=== PATIENT | female | born 1950 | race Caucasian/White ===

== ENCOUNTER → 2016-10-14 | Outpatient (CLI) | payer MEDICARE, OTHER ==
[~2016-10-14] VITALS: Ht 157.5 cm; Wt 89.4 kg
[~2016-10-14] MED LIST: ADIPEX-P37.5 MG PO; ASPIRIN E.C. 8181 MG PO; ATACAND32 MG PO; BELVIQ PO; BETAPACE 80MG80 MG PO; BIOTIN1 MG PO; BYSTOLIC5 MG PO; CALCIUM 600600 M2 PO; CATAPRES 0.1MG0.1 MG PO; CELEBREX 1100 MG/CAP PO; CLARITIN 1010 MG/TAB PO; CLEOCIN HCL300 MG PO; CPAP; CRESTOR20 MG PO; CYMBALTA 60MG60 MG PO; ELIDEL1% TP; ELITE MAGNESIUM1 TAB PO; FASTIN30 MG; FERROUS SULFATE65 MG PO; FISH OIL1000 MG PO; FLEXERIL 1010 MG/TAB PO; GLUCOPHAGE1000 MG PO; IMITREX50 MG PO; IPRATROPIUM BROM3 M1 IH; ISORDIL 5MG TABL5 MG PO; LANTUS SOLOS100 U/ML SC; LANTUS100 U/ML SQ; LEXAPRO 5MG5 MG PO; LOVAZA1 GM PO; LYRICA 100MG C100 M1 PO; MAG-OX 400400 MG/TAB PO; MAGNESIUM100 MG PO; MULTIPLE VITAMI1 CAP PO; MULTIPLE VITAMI1 TA5 PO; NEURONTIN600 MG/TAB PO; NEXIUM 40MG40 MG PO; NITROSTAT0.4 MG/TAB SL; NORCO 325 MG-51 TAB PO; NORCO 325 MG-7.1 TAB PO; NORCOELIX PO; NOVOLOG 100U100 U/M1 SC; NOVOLOG FLEX100 U/ML SC; NOVOLOG FLEX100 U/ML SQ; NOVOLOGMIX70/30 SC; OXECTA5 MG PO; OXYCONTIN 10MG10 MG PO; OXYGEN; PATADAY 2.5 ML2.5 ML OU; PHENTERMINE15 MG PO; PLENDIL 5MG TAB5 MG PO; PLENDIL10 MG PO; REFRESH 1 ML1 ML OU; REFRESH PLUS 00.4 M1 OP; REGLAN 10MG10 MG/TAB PO; REGLAN 5MG T5 MG/TAB PO; REQUIP 1MG T1 MG/TAB PO; REQUIP4 MG PO; RESTORIL 1515 MG/CAP PO; RESTORIL30 MG PO; RT ADVAIR 228 DISKUS IH; RT ADVAIR HFA 2312 G; SINGULAIR 110 MG/TAB PO; SYNTHROID0.088 MG/T PO; TYLENOL W/COD1 UDTAB PO; ULTRAM 50MG TAB50 MG PO; VENTOLIN0.09 MG IH; VITAMIN B COMPL1 T16 PO; VITAMIN B1225 MCG SL; VITAMIN C500 MG; VITAMIN C500 MG PO; [UNRECOGNIZED DRUG - OTHER] IH; [UNRECOGNIZED DRUG - OTHER] PO
[2016-10-14 13:37] VITALS: BP 118/50; PULSE 72
[2016-10-14 14:02] VITALS: BP 118/50; PULSE 72
== END ==
LOC: LIGHT 13:35
DX: E11.8 Type 2 diabetes mellitus with unspecified complications (principal); E66.09 Other obesity due to excess calories; Z68.36 Body mass index [BMI] 36.0-36.9, adult; I10 Essential (primary) hypertension

== ENCOUNTER → 2016-11-18 | Outpatient (CLI) | payer MEDICARE, OTHER ==
[~2016-11-18] VITALS: Ht 157.5 cm; Wt 87.8 kg
[2016-11-18 13:22] VITALS: BP 114/58; PULSE 68
[2016-11-18 13:44] VITALS: BP 114/58; PULSE 68
== END ==
LOC: LIGHT 13:20
DX: E11.69 Type 2 diabetes mellitus with other specified complication (principal); I10 Essential (primary) hypertension; E66.09 Other obesity due to excess calories; Z68.35 Body mass index [BMI] 35.0-35.9, adult

== ENCOUNTER → 2016-12-23 | Outpatient (CLI) | payer MEDICARE, OTHER ==
[~2016-12-23] VITALS: Ht 157.5 cm; Wt 87.5 kg
[2016-12-23 13:50] VITALS: BP 117/50; PULSE 75
== END ==
LOC: LIGHT 13:45
DX: E11.69 Type 2 diabetes mellitus with other specified complication (principal); I25.10 Atherosclerotic heart disease of native coronary artery without angina pectoris; E66.8 Other obesity; Z68.35 Body mass index [BMI] 35.0-35.9, adult; I10 Essential (primary) hypertension; Z95.1 Presence of aortocoronary bypass graft; Z90.710 Acquired absence of both cervix and uterus; Z90.721 Acquired absence of ovaries, unilateral

== ENCOUNTER → 2017-02-24 | Outpatient (CLI) | payer MEDICARE, OTHER ==
[~2017-02-24] VITALS: Ht 157.5 cm; Wt 89.1 kg
[2017-02-24 10:00] VITALS: BP 140/56; PULSE 80
== END ==
LOC: LIGHT 01-20 15:18
DX: E11.9 Type 2 diabetes mellitus without complications (principal); I25.10 Atherosclerotic heart disease of native coronary artery without angina pectoris; I10 Essential (primary) hypertension; E66.9 Obesity, unspecified; Z68.35 Body mass index [BMI] 35.0-35.9, adult; Z71.3 Dietary counseling and surveillance

== ENCOUNTER → 2017-03-31 | Outpatient (CLI) | payer MEDICARE, OTHER ==
[~2017-03-31] VITALS: Ht 157.5 cm; Wt 89.8 kg
[2017-03-31 13:18] VITALS: BP 106/50; PULSE 80
== END ==
LOC: LIGHT 09:38
DX: E11.9 Type 2 diabetes mellitus without complications (principal); I25.10 Atherosclerotic heart disease of native coronary artery without angina pectoris; E66.9 Obesity, unspecified; Z68.36 Body mass index [BMI] 36.0-36.9, adult; Z71.3 Dietary counseling and surveillance; I10 Essential (primary) hypertension

== ENCOUNTER 2017-04-10 11:22 | Inpatient (IN) | payer MEDICARE, OTHER ==
[2017-04-10] VITALS (346 sets, daily range): BP systolic 104–161; BP diastolic 30–536; PULSE 59–66; TEMP 97–98.6; O2SAT 59–100
[~2017-04-10] VITALS: Ht 157.5 cm; Wt 94.5 kg
[~2017-04-10 11:22] MED LIST changes: -REFRESH PLUS 00.4 M1 OP; -REGLAN 5MG T5 MG/TAB PO
[2017-04-10 12:14] LABS: BASO # 0.1 (0.0-0.2); BASO % 0.6 % (0.0-2.0); EOS # 0.2 (0.0-0.7); GRAN # 5.4 (1.4-6.5); HEMATOCRIT 46.6 % (37.0-47.0); HEMOGLOBIN 15.6 g/dl (12.5-16.0); LYMPH # 2.1 (1.2-3.4); MEAN CELL VOLUME 90 fl (80.0-100.0); MEAN CORPUSCULAR HEMOGLOBIN 30 pg (27.0-31.0); MEAN CORPUSCULAR HGB CONC 34 g/dl (33.0-37.0); MEAN PLATELET VOLUME 10.9 fl (7.4-10.4); MONO # 0.7 (0.1-0.6); MONO % 8.2 % (1.7-9.3); PLATELET COUNT 246 K/mm3 (130-400); RED BLOOD COUNT 5.17 M/mm3 (4.10-5.30); REDCELL DISTRIBUTION WIDTH-CV 12.5 % (11.5-14.5); WHITE BLOOD COUNT 8.4 K/mm3 (4.8-10.8)
[2017-04-10 12:21] LABS: PROTHROMBIN TIME 10.8 SECONDS (9.7-12.8)
[2017-04-10 12:22] LABS: ADJUSTED CALCIUM 9.5 mg/dL (8.4-10.2); ALANINE AMINOTRANSFERASE 28 U/L (9-52); ALKALINE PHOSPHATASE 55 U/L (50-136); ANION GAP 10 mmol/L (7-16); BILIRUBIN,TOTAL 0.7 mg/dL (0.0-1.0); BLOOD UREA NITROGEN 15 mg/dL (7-17); CALCIUM 9.5 mg/dL (8.4-10.2); CARBON DIOXIDE 29 mmol/L (22-30); CHLORIDE 98 mmol/L (98-107); CREATININE, serum 0.69 mg/dL (0.52-1.25); GLUCOSE 142 mg/dL (74-106); POTASSIUM 4.4 mmol/L (3.4-5.0); SODIUM 137 mmol/L (137-145); TOTAL PROTEIN 6.9 gm/dL (6.4-8.2)
[2017-04-10 12:24] LABS: PARTIAL THROMBOPLASTIN TIME 31.2 SECONDS (26.0-37.0)
[2017-04-10 12:37] LABS: TROPONIN-I < 0.012 ng/mL (0.000-0.034)
[2017-04-11] VITALS (1357 sets, daily range): BP systolic 113–140; BP diastolic 39–50; PULSE 61–70; TEMP 96.4–98.3; O2SAT 84–100
[2017-04-11 04:33] LABS: HEMATOCRIT 39.5 % (37.0-47.0); MEAN CELL VOLUME 89 fl (80.0-100.0); MEAN CORPUSCULAR HEMOGLOBIN 30 pg (27.0-31.0); MEAN CORPUSCULAR HGB CONC 33 g/dl (33.0-37.0); MEAN PLATELET VOLUME 11.4 fl (7.4-10.4); PLATELET COUNT 191 K/mm3 (130-400); RED BLOOD COUNT 4.42 M/mm3 (4.10-5.30); REDCELL DISTRIBUTION WIDTH-CV 12.7 % (11.5-14.5); WHITE BLOOD COUNT 9.3 K/mm3 (4.8-10.8)
[2017-04-11 04:35] LABS: ADD PATHOLOGY DIFF REVIEW NO; HEMOGLOBIN 13.2 g/dl (12.5-16.0)
[2017-04-11 05:01] LABS: CALCIUM 7.9 mg/dL (8.4-10.2); CREATININE, serum 0.77 mg/dL (0.52-1.25); POTASSIUM 4.3 mmol/L (3.4-5.0)
[2017-04-11 05:09] LABS: BAND 59 % (0-10); NEUTROPHILS 25 % (42.0-75.2); TOTAL CELLS COUNTED 100
[2017-04-11 05:10] LABS: PLATELET ESTIMATE NORMAL (NORMAL)
[2017-04-12] VITALS (390 sets, daily range): BP systolic 127–152; BP diastolic 39–91; PULSE 59–62; TEMP 96.6–98.5; O2SAT 88–100
[2017-04-12 04:17] LABS: HEMATOCRIT 36.5 % (37.0-47.0); HEMOGLOBIN 12.1 g/dl (12.5-16.0); MEAN CELL VOLUME 91 fl (80.0-100.0); MEAN CORPUSCULAR HEMOGLOBIN 30 pg (27.0-31.0); MEAN CORPUSCULAR HGB CONC 33 g/dl (33.0-37.0); MEAN PLATELET VOLUME 11.2 fl (7.4-10.4); PLATELET COUNT 165 K/mm3 (130-400); REDCELL DISTRIBUTION WIDTH-CV 12.8 % (11.5-14.5); WHITE BLOOD COUNT 12.8 K/mm3 (4.8-10.8)
[2017-04-12 04:18] LABS: ADD PATHOLOGY DIFF REVIEW NO
[2017-04-12 04:37] LABS: CALCIUM 8.2 mg/dL (8.4-10.2); CREATININE, serum 0.55 mg/dL (0.52-1.25); MAGNESIUM 1.4 mg/dL (1.6-2.3); PHOSPHOROUS 2.7 mg/dL (2.5-4.5)
[2017-04-12 05:43] LABS: BAND 46 % (0-10); NEUTROPHILS 42 % (42.0-75.2); PLATELET ESTIMATE NORMAL (NORMAL); TOTAL CELLS COUNTED 100
[2017-04-13 01:09] VITALS: BP 132/42; PULSE 59; TEMP 98.2
[2017-04-13 05:26] VITALS: BP 141/44; PULSE 60; TEMP 98.6
[2017-04-13 09:54] VITALS: BP 144/47; PULSE 61; TEMP 98.1
[2017-04-13 13:34] VITALS: BP 136/48; PULSE 61; TEMP 98.5
[2017-04-13 17:48] VITALS: BP 152/66; PULSE 61; TEMP 98.4
[2017-04-13 20:55] VITALS: BP 110/63; PULSE 59; TEMP 98
[2017-04-14 06:37] VITALS: BP 134/58; PULSE 60; TEMP 98.5
[2017-04-14 10:26] VITALS: BP 150/60; PULSE 59; TEMP 98.5
[2017-04-14 14:14] VITALS: BP 158/60; PULSE 60; TEMP 98.2
[2017-04-14 18:13] VITALS: BP 153/61; PULSE 60
[2017-04-14 21:29] VITALS: BP 162/55; PULSE 57; TEMP 98.1
[2017-04-15 01:49] VITALS: BP 167/65; PULSE 60; TEMP 98.3
[2017-04-15 05:51] VITALS: BP 165/55; PULSE 60; TEMP 98.1
[2017-04-15 09:54] VITALS: BP 153/60; PULSE 60; TEMP 98.5
[2017-04-15 13:52] VITALS: BP 158/87; PULSE 72; TEMP 98
[2017-06-13] MEDS ORDERED: REGLAN 5MG T5 MG/TAB PO (06:35)
== END 2017-04-15 17:10 | disposition home or self-care (01) | DRG 327 ==
LOC: COL.ER 11:22 → SURG 13:39 → ICU 13:39 → SURG 04-12 11:50
PROVIDERS: Emergency Medicine; Surgery
PROC: 0DBA0ZX Excision of Jejunum, Open Approach, Diagnostic (ICD-10-PCS; principal; 2017-04-10 16:00)
PROC: 0DJ08ZZ Inspection of Upper Intestinal Tract, Via Natural or Artificial Opening Endoscopic (ICD-10-PCS; principal; 2017-04-10 16:00)
PROC: 0D160ZA Bypass Stomach to Jejunum, Open Approach (ICD-10-PCS; principal; 2017-04-10 16:00)
PROC: 0WJP4ZZ Inspection of Gastrointestinal Tract, Percutaneous Endoscopic Approach (ICD-10-PCS; principal; 2017-04-10 16:00)
DX: K28.1 Acute gastrojejunal ulcer with perforation (principal); I50.32 Chronic diastolic (congestive) heart failure; I25.10 Atherosclerotic heart disease of native coronary artery without angina pectoris; E11.42 Type 2 diabetes mellitus with diabetic polyneuropathy; Z98.84 Bariatric surgery status; Z95.1 Presence of aortocoronary bypass graft; Z95.0 Presence of cardiac pacemaker; Z87.891 Personal history of nicotine dependence; I11.0 Hypertensive heart disease with heart failure; J45.909 Unspecified asthma, uncomplicated; E66.01 Morbid (severe) obesity due to excess calories; Z68.37 Body mass index [BMI] 37.0-37.9, adult; Z79.4 Long term (current) use of insulin
CPT/HCPCS: A4315; A9284; C9113; J0330; J1170; J1335; J1644; J1650; J1815; J1956; J2250; J2704; J2765; J3010; J3475; J3480; J7030; Q9967

== ENCOUNTER → 2017-04-25 | Outpatient (CLI) | payer MEDICARE, OTHER ==
[~2017-04-25] VITALS: Ht 157.5 cm; Wt 87.5 kg
[~2017-04-25] MED LIST changes: +REFRESH PLUS 00.4 M1 OP; +REGLAN 5MG T5 MG/TAB PO
[2017-04-25 15:52] VITALS: BP 116/64; PULSE 64
== END ==
LOC: LIGHT 12:39
DX: E11.9 Type 2 diabetes mellitus without complications (principal); I25.10 Atherosclerotic heart disease of native coronary artery without angina pectoris; E66.9 Obesity, unspecified; Z68.35 Body mass index [BMI] 35.0-35.9, adult; Z71.3 Dietary counseling and surveillance; I10 Essential (primary) hypertension

== ENCOUNTER → 2017-05-24 | Outpatient (CLI) | payer MEDICARE, OTHER | LOC: COL.RAD 07:38 | DX: R04.2 Hemoptysis (principal); Z98.84 Bariatric surgery status; K28.9 Gastrojejunal ulcer, unspecified as acute or chronic, without hemorrhage or perforation ==

== ENCOUNTER 2017-06-13 06:35 | Day surgery (SDC) | payer MEDICARE, OTHER ==
[2005-03-02 17:46] VITALS: BP 115/57
[~2017-06-13] VITALS: Ht 157.5 cm; Wt 90.9 kg
[~2017-06-13 06:35] MED LIST changes: -REFRESH PLUS 00.4 M1 OP
[2017-06-13] MEDS ORDERED: REFRESH PLUS 00.4 M1 OP (07:03)
[2017-06-13] MEDS ORDERED: NEXIUM 40MG40 MG PO (07:04)
[2017-06-13 07:32] VITALS: BP 182/84; PULSE 62; TEMP 97.1
[2017-06-13 07:55] VITALS: BP 145/55; PULSE 63; TEMP 97
[2017-06-13 08:10] VITALS: BP 149/64; PULSE 63
[2017-06-13 08:20] VITALS: BP 144/58; PULSE 60
== END 2017-06-13 08:40 | disposition home or self-care (01) ==
LOC: SDCO 06:35 → OR 06:45 → SDCO 06:45
DX: K21.9 Gastro-esophageal reflux disease without esophagitis (principal); Z98.84 Bariatric surgery status; I25.10 Atherosclerotic heart disease of native coronary artery without angina pectoris; Z95.1 Presence of aortocoronary bypass graft; I10 Essential (primary) hypertension; E03.9 Hypothyroidism, unspecified; J45.909 Unspecified asthma, uncomplicated; G47.30 Sleep apnea, unspecified; E11.40 Type 2 diabetes mellitus with diabetic neuropathy, unspecified; Z79.4 Long term (current) use of insulin; Z95.0 Presence of cardiac pacemaker; Z95.5 Presence of coronary angioplasty implant and graft; Z90.710 Acquired absence of both cervix and uterus; Z96.651 Presence of right artificial knee joint; Z87.891 Personal history of nicotine dependence; J44.9 Chronic obstructive pulmonary disease, unspecified; Z86.73 Personal history of transient ischemic attack (TIA), and cerebral infarction without residual deficits; M79.7 Fibromyalgia; G89.29 Other chronic pain; M19.90 Unspecified osteoarthritis, unspecified site
CPT/HCPCS: OP; J2704; J7030

== ENCOUNTER → 2017-06-17 | Outpatient (CLI) | payer MEDICARE, OTHER ==
[~2017-06-17] MED LIST changes: +REFRESH PLUS 00.4 M1 OP
== END ==
LOC: COL.RAD 13:34
DX: M48.02 Spinal stenosis, cervical region (principal)

== ENCOUNTER → 2017-06-20 | Outpatient (CLI) | payer MEDICARE, OTHER | LOC: COL.LAB 14:56 | DX: Z01.89 Encounter for other specified special examinations (principal) ==

== ENCOUNTER → 2017-06-20 | Outpatient (CLI) | payer MEDICARE, OTHER ==
[~2017-06-20] VITALS: Ht 157.5 cm; Wt 89.4 kg
[2017-06-20 14:58] VITALS: BP 132/60; PULSE 64
== END ==
LOC: LIGHT
DX: E66.9 Obesity, unspecified (principal); Z68.35 Body mass index [BMI] 35.0-35.9, adult; Z71.3 Dietary counseling and surveillance

== ENCOUNTER → 2017-08-04 | Outpatient (CLI) | payer MEDICARE, OTHER ==
[~2017-08-04] VITALS: Ht 157.5 cm; Wt 94.3 kg
[~2017-08-04] MED LIST changes: +COLACE 100100 MG/CAP PO; +MASON NATURAL325 MG PO; +PROTONIX 40MG T40 MG PO
[2017-08-04 14:31] VITALS: BP 130/40; PULSE 76
== END ==
LOC: LIGHT 10:00
DX: E11.9 Type 2 diabetes mellitus without complications (principal); I25.10 Atherosclerotic heart disease of native coronary artery without angina pectoris; I10 Essential (primary) hypertension; E66.9 Obesity, unspecified; Z68.38 Body mass index [BMI] 38.0-38.9, adult; Z71.3 Dietary counseling and surveillance

== ENCOUNTER → 2017-08-15 | Outpatient (CLI) | payer MEDICARE, OTHER ==
[~2017-08-15] VITALS: Ht 157.5 cm; Wt 94.3 kg
[2017-08-15 14:04] VITALS: BP 146/60; PULSE 80
== END ==
LOC: LIGHT 08:18
DX: E11.9 Type 2 diabetes mellitus without complications (principal); I25.10 Atherosclerotic heart disease of native coronary artery without angina pectoris; I10 Essential (primary) hypertension; E66.9 Obesity, unspecified; Z68.38 Body mass index [BMI] 38.0-38.9, adult; Z71.3 Dietary counseling and surveillance

== ENCOUNTER → 2017-09-15 | Outpatient (CLI) | payer MEDICARE, OTHER ==
[~2017-09-15] VITALS: Ht 157.5 cm; Wt 94.6 kg
[2017-09-15 13:31] VITALS: BP 130/52; PULSE 72
== END ==
LOC: LIGHT 12:44
DX: E11.9 Type 2 diabetes mellitus without complications (principal); I25.10 Atherosclerotic heart disease of native coronary artery without angina pectoris; I10 Essential (primary) hypertension; E66.9 Obesity, unspecified; Z68.38 Body mass index [BMI] 38.0-38.9, adult; Z71.3 Dietary counseling and surveillance

== ENCOUNTER → 2017-10-20 | Outpatient (CLI) | payer MEDICARE, OTHER ==
[~2017-10-20] VITALS: Ht 157.5 cm; Wt 96.2 kg
[2017-10-20 12:51] VITALS: BP 140/60; PULSE 72
== END ==
LOC: LIGHT 12:36
DX: E11.9 Type 2 diabetes mellitus without complications (principal); I25.10 Atherosclerotic heart disease of native coronary artery without angina pectoris; I10 Essential (primary) hypertension; E66.9 Obesity, unspecified; Z68.38 Body mass index [BMI] 38.0-38.9, adult; Z71.3 Dietary counseling and surveillance
CPT/HCPCS: G0463

== ENCOUNTER → 2017-11-21 | Outpatient (CLI) | payer MEDICARE, OTHER ==
[~2017-11-21] VITALS: Ht 157.5 cm; Wt 97.1 kg
[2017-11-21 13:25] VITALS: BP 120/50; PULSE 64
== END ==
LOC: LIGHT 07-21 10:49
DX: E11.9 Type 2 diabetes mellitus without complications (principal); I25.10 Atherosclerotic heart disease of native coronary artery without angina pectoris; I10 Essential (primary) hypertension; E66.9 Obesity, unspecified; Z68.39 Body mass index [BMI] 39.0-39.9, adult; Z71.3 Dietary counseling and surveillance
CPT/HCPCS: G0463

== ENCOUNTER → 2017-12-15 | Outpatient (CLI) | payer MEDICARE, OTHER ==
[~2017-12-15] VITALS: Ht 157.5 cm; Wt 97.7 kg
[2017-12-15 13:09] VITALS: BP 128/50; PULSE 72
== END ==
LOC: LIGHT 12:56
DX: E11.9 Type 2 diabetes mellitus without complications (principal); I25.10 Atherosclerotic heart disease of native coronary artery without angina pectoris; I10 Essential (primary) hypertension; E66.9 Obesity, unspecified; Z68.39 Body mass index [BMI] 39.0-39.9, adult; Z71.3 Dietary counseling and surveillance
CPT/HCPCS: G0463

== ENCOUNTER → 2017-12-26 | Outpatient (CLI) | payer MEDICARE, OTHER | LOC: MC.RAD 13:19 | DX: Z12.31 Encounter for screening mammogram for malignant neoplasm of breast (principal) ==

== ENCOUNTER → 2018-01-24 | Outpatient (CLI) | payer MEDICARE, OTHER | LOC: COL.PUL 12:54 | DX: R06.02 Shortness of breath (principal); Z87.891 Personal history of nicotine dependence ==

== ENCOUNTER → 2018-01-27 | Outpatient (CLI) | payer MEDICARE, OTHER | LOC: COL.RAD 10:50 | DX: K21.9 Gastro-esophageal reflux disease without esophagitis (principal); R05 Cough; Z98.84 Bariatric surgery status ==

== ENCOUNTER → 2018-02-13 | Outpatient (CLI) | payer MEDICARE, OTHER ==
[~2018-02-13] VITALS: Ht 157.5 cm; Wt 96.6 kg
[~2018-02-13] MED LIST changes: +PRIL40 PO
[2018-02-13 14:19] VITALS: BP 124/58; PULSE 68
== END ==
LOC: LIGHT 01-26 13:03
DX: K21.9 Gastro-esophageal reflux disease without esophagitis (principal); Z98.84 Bariatric surgery status; E66.9 Obesity, unspecified; Z68.39 Body mass index [BMI] 39.0-39.9, adult; Z71.3 Dietary counseling and surveillance; I10 Essential (primary) hypertension
CPT/HCPCS: G0463

== ENCOUNTER → 2018-03-23 | Outpatient (CLI) | payer MEDICARE, OTHER ==
[~2018-03-23] VITALS: Ht 157.5 cm; Wt 96.4 kg
[2018-03-23 15:03] VITALS: BP 122/56; PULSE 60
== END ==
LOC: LIGHT 14:58
DX: K21.9 Gastro-esophageal reflux disease without esophagitis (principal); Z98.84 Bariatric surgery status; E66.9 Obesity, unspecified; Z68.38 Body mass index [BMI] 38.0-38.9, adult; Z71.3 Dietary counseling and surveillance; I10 Essential (primary) hypertension
CPT/HCPCS: G0463

== ENCOUNTER → 2018-04-20 | Outpatient (CLI) | payer MEDICARE, OTHER ==
[~2018-04-20] VITALS: Ht 157.5 cm; Wt 96.6 kg
[~2018-04-20] MED LIST changes: +ZANTAC 300300 MG PO
[2018-04-20 14:16] VITALS: BP 124/60; PULSE 68
== END ==
LOC: LIGHT 13:47
DX: K21.9 Gastro-esophageal reflux disease without esophagitis (principal); E66.9 Obesity, unspecified; Z68.39 Body mass index [BMI] 39.0-39.9, adult; Z71.3 Dietary counseling and surveillance; I10 Essential (primary) hypertension
CPT/HCPCS: G0463

== ENCOUNTER → 2018-05-22 | Outpatient (CLI) | payer MEDICARE, OTHER ==
[~2018-05-22] VITALS: Ht 157.5 cm; Wt 96.6 kg
[2018-05-22 13:08] VITALS: BP 150/66; PULSE 72
== END ==
LOC: LIGHT 13:01 → SUN.DIA 13:01
DX: K21.9 Gastro-esophageal reflux disease without esophagitis (principal); I10 Essential (primary) hypertension; E66.9 Obesity, unspecified; Z68.39 Body mass index [BMI] 39.0-39.9, adult; Z71.3 Dietary counseling and surveillance; Z98.84 Bariatric surgery status
CPT/HCPCS: G0463

== ENCOUNTER 2018-05-29 11:15 | Day surgery (SDC) | payer MEDICARE, OTHER ==
[2005-03-02 17:46] VITALS: BP 115/57
[~2018-05-29] VITALS: Ht 157.5 cm; Wt 96.3 kg
[2018-05-29] VITALS (11 sets, daily range): BP systolic 93–135; BP diastolic 23–63; PULSE 50–111; TEMP 97.4–98.5
[2018-05-29] MEDS ORDERED: CALCIUM WITH D31 CTB PO (12:10)
[2018-05-29 12:17] LABS: CALCIUM 9.3 mg/dL (8.4-10.2); CREATININE, serum 0.87 mg/dL (0.52-1.25); POTASSIUM 4.6 mmol/L (3.4-5.0)
[2018-05-30 03:57] VITALS: BP 151/57; PULSE 61; TEMP 98.2
[2018-05-30 08:15] VITALS: BP 151/52; PULSE 60; TEMP 98.2
[2018-05-30 11:37] VITALS: BP 146/51; PULSE 64; TEMP 98.5
== END 2018-05-30 17:25 | disposition home or self-care (01) ==
LOC: SDCO 11:15 → SURG 18:00 → SDCO 05-30 17:25
PROVIDERS: Nurse Anesthetist, Certified Registered
DX: K43.2 Incisional hernia without obstruction or gangrene (principal); K66.0 Peritoneal adhesions (postprocedural) (postinfection); I50.9 Heart failure, unspecified; I11.0 Hypertensive heart disease with heart failure; Z79.899 Other long term (current) drug therapy; E11.40 Type 2 diabetes mellitus with diabetic neuropathy, unspecified; Z79.84 Long term (current) use of oral hypoglycemic drugs; Z79.82 Long term (current) use of aspirin; Z98.84 Bariatric surgery status; E66.01 Morbid (severe) obesity due to excess calories; Z68.39 Body mass index [BMI] 39.0-39.9, adult; K21.9 Gastro-esophageal reflux disease without esophagitis; I25.10 Atherosclerotic heart disease of native coronary artery without angina pectoris; Z95.1 Presence of aortocoronary bypass graft; E03.9 Hypothyroidism, unspecified; J45.909 Unspecified asthma, uncomplicated; Z95.5 Presence of coronary angioplasty implant and graft; Z95.0 Presence of cardiac pacemaker; G47.33 Obstructive sleep apnea (adult) (pediatric); M79.7 Fibromyalgia; G89.29 Other chronic pain; Z86.73 Personal history of transient ischemic attack (TIA), and cerebral infarction without residual deficits; F32.9 Major depressive disorder, single episode, unspecified
CPT/HCPCS: OP; A9284; C1713; C1781; J0330; J0690; J1100; J1170; J1815; J1885; J2405; J2704; J2710; J2765; J3010; J7030

== ENCOUNTER → 2018-09-29 | Outpatient (CLI) | payer MEDICARE, OTHER ==
[~2018-09-29] MED LIST changes: +CALCIUM WITH D31 CTB PO
== END ==
LOC: COL.RAD 08:48
DX: Z96.651 Presence of right artificial knee joint (principal)
CPT/HCPCS: A9503

== ENCOUNTER → 2019-03-27 | Outpatient (CLI) | payer MEDICARE, OTHER | LOC: COL.RAD 09:57 | DX: M51.34 Other intervertebral disc degeneration, thoracic region (principal); M89.9 Disorder of bone, unspecified ==

== ENCOUNTER 2019-05-13 09:40 | Emergency (ER) | payer MEDICARE, OTHER ==
[2005-03-02 17:46] VITALS: BP 115/57
[~2019-05-13] VITALS: Ht 157.5 cm; Wt 90.9 kg
[2019-05-13 09:45] VITALS: TEMP 98.2
[2019-05-13] MEDS ORDERED: ZOLOFT 25MG25 MG PO (10:09)
[2019-05-13] MEDS ORDERED: LYRICA 150MG C150 MG PO (10:27)
[2019-05-13 10:28] LABS: BASO % 0.3 % (0.0-2.0); EOS # 0.1 (0.0-0.7); EOS % 1.2 % (0-4.0); GRAN # 7.6 (1.4-6.5); GRAN % 71.9 % (42.2-75.2); HEMATOCRIT 40.5 % (37.0-47.0); HEMOGLOBIN 13.2 g/dl (12.5-16.0); LYMPH # 1.7 (1.2-3.4); LYMPH % 16.4 % (20.0-51.0); MEAN CELL VOLUME 93 fl (80.0-100.0); MEAN CORPUSCULAR HEMOGLOBIN 30 pg (27.0-31.0); MEAN CORPUSCULAR HGB CONC 33 g/dl (33.0-37.0); MEAN PLATELET VOLUME 11.1 fl (7.4-10.4); MONO # 1.1 (0.1-0.6); PLATELET COUNT 167 K/mm3 (130-400); RED BLOOD COUNT 4.38 M/mm3 (4.10-5.30)
[2019-05-13 10:39] LABS: ALANINE AMINOTRANSFERASE 14 U/L (9-52); ALKALINE PHOSPHATASE 44 U/L (50-136); ANION GAP 9 mmol/L (7-16); AST,SGOT 28 U/L (15-37); BILIRUBIN,TOTAL 0.6 mg/dL (0.0-1.0); BLOOD UREA NITROGEN 24 mg/dL (7-17); C-REACTIVE PROTEIN 4.7 mg/dL (0.0-0.9); CALCIUM 9.4 mg/dL (8.4-10.2); CARBON DIOXIDE 25 mmol/L (22-30); CHLORIDE 107 mmol/L (98-107); CREATININE, serum 0.78 (0.52-1.25); GLUCOSE 93 mg/dL (74-106); LIPASE 73 U/L (23-300); POTASSIUM 4.2 mmol/L (3.4-5.0); SODIUM 141 mmol/L (137-145); TOTAL PROTEIN 7.1 gm/dL (6.4-8.2)
[2019-05-13 10:50] LABS: COLLECTION METHOD CLEAN CATCH
[2019-05-13 11:04] LABS: TROPONIN-I < 0.012 ng/mL (0.000-0.035)
[2019-05-13 11:04] LABS: MUCOUS Present /lpf; SQUAMOUS EPITHELIAL 0-2 /hpf; URINE BACTERIA Rare /hpf; URINE RBC 0-2 /hpf
[2019-05-13 11:11] LABS: PH 5 (5-8); URINE APPEARANCE Clear; URINE BILIRUBIN Negative (NEGATIVE); URINE BLOOD Negative (NEGATIVE); URINE COLOR Yellow; URINE GLUCOSE Negative (NEGATIVE); URINE KETONE Trace (NEGATIVE); URINE LEUKOCYTE ESTERASE Negative (NEGATIVE); URINE NITRATE Positive (NEGATIVE); URINE PROTEIN(semi-quant) Negative (NEGATIVE); URINE UROBILINOGEN Negative (NEGATIVE)
[2019-05-13] MEDS ORDERED: NEXIUM 20MG20 MG PO (12:54)
[2019-05-13 13:29] VITALS: BP 122/61; PULSE 61
== END 2019-05-13 13:53 | disposition home or self-care (01) ==
LOC: COL.ER 09:40
PROVIDERS: Family Medicine
DX: K52.9 Noninfective gastroenteritis and colitis, unspecified (principal); Z79.4 Long term (current) use of insulin; Z90.710 Acquired absence of both cervix and uterus; Z90.49 Acquired absence of other specified parts of digestive tract; Z95.0 Presence of cardiac pacemaker; Z79.82 Long term (current) use of aspirin
CPT/HCPCS: J2405; J3010; J7030; Q9967

== ENCOUNTER 2019-08-24 06:39 | Inpatient (IN) | payer MEDICARE, OTHER ==
[~2019-08-24] VITALS: Ht 154.9 cm; Wt 96.2 kg
[~2019-08-24 06:39] MED LIST changes: +LYRICA 150MG C150 MG PO; -MAGNESIUM100 MG PO; +NEXIUM 20MG20 MG PO; +ZOLOFT 25MG25 MG PO
[2019-08-24 07:47] LABS: BASO # 0.1 (0.0-0.2); BASO % 0.6 % (0.0-2.0); EOS # 0.2 (0.0-0.7); EOS % 2.2 % (0-4.0); GRAN # 5.6 (1.4-6.5); GRAN % 65.3 % (42.2-75.2); HEMATOCRIT 39.1 % (37.0-47.0); HEMOGLOBIN 12.4 g/dl (12.5-16.0); LYMPH # 1.8 (1.2-3.4); LYMPH % 20.6 % (20.0-51.0); MEAN CELL VOLUME 93 fl (80.0-100.0); MEAN CORPUSCULAR HEMOGLOBIN 30 pg (27.0-31.0); MEAN CORPUSCULAR HGB CONC 32 g/dl (33.0-37.0); MEAN PLATELET VOLUME 10.8 fl (7.4-10.4); PLATELET COUNT 178 K/mm3 (130-400); REDCELL DISTRIBUTION WIDTH-CV 12.4 % (11.5-14.5)
[2019-08-24 07:55] LABS: COLLECTION METHOD CLEAN CATCH
[2019-08-24 08:02] LABS: ALBUMIN 3.8 gm/dL (3.5-5.0); BILIRUBIN,TOTAL 0.3 mg/dL (0.0-1.0); CALCIUM 8.9 mg/dL (8.4-10.2); CREATININE, serum 0.84 (0.52-1.25); POTASSIUM 4.1 mmol/L (3.4-5.0); TOTAL PROTEIN 6.8 gm/dL (6.4-8.2)
[2019-08-24 08:04] LABS: PH 7 (5-8); SQUAMOUS EPITHELIAL 0-2 /hpf; URINE APPEARANCE Clear; URINE BACTERIA None Seen /hpf; URINE BILIRUBIN Negative (NEGATIVE); URINE BLOOD Negative (NEGATIVE); URINE COLOR Straw; URINE GLUCOSE Negative (NEGATIVE); URINE KETONE Negative (NEGATIVE); URINE LEUKOCYTE ESTERASE Negative (NEGATIVE); URINE NITRATE Negative (NEGATIVE); URINE PROTEIN(semi-quant) Negative (NEGATIVE); URINE RBC None Seen /hpf; URINE UROBILINOGEN Negative (NEGATIVE)
[2019-08-24 08:06] LABS: C-REACTIVE PROTEIN 2.5 mg/dL (0.0-0.9)
--- NOTE | 2019-08-24 11:00 | NUR ---
Patient alert and oriented, answers questions appropriately. See assessment. Abdomen soft, non tender, non distended. Bowel sounds active x4 quads. +Flatus. No c/o abdominal pain or pressure. No other c/o at this time.
[2019-08-24] MEDS ORDERED: BIOTIN2500 MCG PO (11:34)
[2019-08-24] MEDS ORDERED: CATAPRES 0.1MG0.1 MG PO (11:35)
[2019-08-24] MEDS ORDERED: TIAZAC120 MG PO (11:36)
[2019-08-24] MEDS ORDERED: DICLOFENAC SOD2.5 ML TOP (11:36)
[2019-08-24] MEDS ORDERED: COLACE 100100 MG/CAP PO (11:37)
[2019-08-24] MEDS ORDERED: LIDODERM 5% PATC1 EA TP (11:38)
[2019-08-24] MEDS ORDERED: CLARITIN 1010 MG/TAB PO (11:39)
[2019-08-24] MEDS ORDERED: LYRICA 150MG C150 MG PO (11:39)
[2019-08-24] MEDS ORDERED: ELIDEL1% TOP (11:40)
[2019-08-24 11:41] VITALS: BP 133/52; PULSE 66; TEMP 98.8
[2019-08-24] MEDS ORDERED: CARAFATE 1GM1 G PO (11:41)
[2019-08-24] MEDS ORDERED: FIBERCON (11:41)
[2019-08-24] MEDS ORDERED: IMITREX50 MG PO (11:42)
[2019-08-24] MEDS ORDERED: RESTORIL30 MG PO (11:43)
[2019-08-24] MEDS ORDERED: DEMADEX 20MG20 M1 PO (11:45)
[2019-08-24 15:37] VITALS: BP 148/47; PULSE 59; TEMP 98.3
[2019-08-24 21:52] VITALS: BP 155/41; PULSE 59; TEMP 98.2
--- NOTE | 2019-08-24 22:00 | NUR ---
Patient up in chair beginning of shift, ready for bed. Denies pain. IVF infusing to left AC without redness or swelling. Takes HS meds at this time. Signs consent for EGD in AM.
[2019-08-24 23:57] VITALS: BP 134/46; PULSE 61; TEMP 98
[2019-08-25] VITALS (12 sets, daily range): BP systolic 113–162; BP diastolic 37–60; PULSE 58–63; TEMP 97.7–98.8
--- NOTE | 2019-08-25 | NUR ---
NPO for EGD in AM.
--- NOTE | 2019-08-25 02:00 | NUR ---
Requests pain meds, Morphine 2mg IVP given at this time, rates pain 7/10 to epigastric area.
--- NOTE | 2019-08-25 05:12 | NUR ---
Resting quietly in bed.
--- NOTE | 2019-08-25 08:45 | NUR ---
PATIENT IS SITTING UP IN THE CHAIR THIS MORNING. PATIENT IS A&OX4. VSS. BOWEL SOUNDS ACTIVE ALL FOUR QUADRANTS. PATIENT DENIES ANY COMPLAINTS OF N/V. PATIENT IS NPO FOR PROCEDURE. POSITIVE PEDAL PULSES EQUAL BILATERALLY. 1+ PITTING-EDEMA TO BLE. PRE-OP FLUIDS INFUSING TO LEFT AC IV VIA GRAVITY FLOW TUBING. CONSENT FORM SIGNED AND ON PATIENT CHART. CALL LIGHT WITHIN REACH. FAMILY PRESENT AT THE BEDSIDE. PATIENT DENIES ANY OTHER NEEDS AT THIS TIME.
--- NOTE | 2019-08-25 09:00 | NUR ---
PATIENT TAKEN TO PERIOP VIA BED BY RONNIE SHEPPARD. WILL WAIT FOR PATIENT ARRIVAL BACK TO ROOM 330 POST-OP.
--- NOTE | 2019-08-25 09:45 | NUR ---
PATIENT ARRIVED BACK TO ROOM 330 VIA BED FROM PACU. PATIENT SETTELED INTO ROOM. POST-OP VITALS STABLE. WILL CONTINUE TO MONITOR.
--- NOTE | 2019-08-25 13:30 | NUR ---
POST-OP VITAL SIGNS COMPLETE. PATIENT IS A&O AND SITTING UP IN BED WITH FAMILY PRESENT AT THE BEDSIDE. CALL LIGHT WITHIN REACH. PATIENT DENIES ANY NEEDS AT THIS TIME.
--- NOTE | 2019-08-25 14:45 | NUR ---
CALLED AND NOTIFIED THAT THE PATIENT HAS NO VTE ORDERS. LOVENOX 40 MG SQ ONCE DAILY TORB TO THIS NURSE.
--- NOTE | 2019-08-25 16:50 | NUR ---
CALLED AND NOTIFIED THAT THE PATIENT DOES NOT HAVE BLOOD SUGAR CHECKS, DIABETIC MEDICATIONS OR THE PATIENTS DILTIAZEM ORDERED. CHECK BLOOD SUGARS ACHS, HOLD ALL DIABETIC MEDICATIONS AT THIS TIME, RESUME HOME DOSE OF DILTIAZEM TORB FROM TO THIS NURSE.
--- NOTE | 2019-08-25 19:05 | NUR ---
REPORT GIVEN TO RONNIE YEAGER.
--- NOTE | 2019-08-25 22:21 | NUR ---
RESTING QUIETLY. PT REPORTS SHE'S HAVING VERY LITTLE PAIN. NO c/o N/V.
[2019-08-26] VITALS: BP 141/47; PULSE 61; TEMP 98.3
[2019-08-26 03:47] VITALS: BP 127/49; PULSE 70; TEMP 97.9
[2019-08-26 08:01] VITALS: BP 126/55; PULSE 61; TEMP 97.3
[2019-08-26] MEDS ORDERED: CARAFATE S1 GM/10 ML PO ×2 (10:21→10:23)
--- NOTE | 2019-08-26 10:35 | NUR ---
Patient sitting in chair knitting upon assessment. States she is feeling much better today and has no pain. Tolerated breakfast without any pain as well. She is hopeful for discharge today. Call light in reach.
--- NOTE | 2019-08-26 11:46 | NUR ---
Plan: To return home in [place] independently. Assess: HALLIE met with patient [facility] plan. Patient reports that she resides alone but does have a dtr coming in from [facility] for the week and will be able to help her if needed. Patient reports that her DTR or Friend will transport her home. Patient reports that her DTR Luisa Nascimento is her EMR contact at . Patient's pcp is Dr. Josh cardoso [facility] from [facility]. Patient reports the use of a CPAP machine nightly and has a pacemaker. No other DME reported. Patient denies HHS. Action: HALLIE educated patient about community resources and support. NO additonal needs identified.
--- NOTE | 2019-08-26 12:18 | NUR ---
Patient discharged to home at 12:10. All discharge paperwork reviewed with patient including new medication, Carafate, sent to [facility] in [place]. Patient verbalizes no questions about her discharge or plan of care and is excited to go home. Patient's daughter here to transport patient who lives at home alone with her cats. INT removed. Room checked and no patient belongings noted upon discharge. Patient wheeled out to car by this health science writer.
== END 2019-08-26 12:21 | disposition home or self-care (01) | DRG 381 ==
LOC: COL.ER 06:39 → JCC 09:18
PROVIDERS: Emergency Medicine; ADMIT Surgery
PROC: 0DJ08ZZ Inspection of Upper Intestinal Tract, Via Natural or Artificial Opening Endoscopic (ICD-10-PCS; principal; 2019-08-24)
DX: K28.9 Gastrojejunal ulcer, unspecified as acute or chronic, without hemorrhage or perforation (principal); Z68.41 Body mass index [BMI] 40.0-44.9, adult; E11.9 Type 2 diabetes mellitus without complications; K21.9 Gastro-esophageal reflux disease without esophagitis; E66.01 Morbid (severe) obesity due to excess calories; I25.10 Atherosclerotic heart disease of native coronary artery without angina pectoris; J45.909 Unspecified asthma, uncomplicated; I10 Essential (primary) hypertension; E03.9 Hypothyroidism, unspecified; M19.90 Unspecified osteoarthritis, unspecified site; G47.33 Obstructive sleep apnea (adult) (pediatric); E78.5 Hyperlipidemia, unspecified; D64.9 Anemia, unspecified; M79.7 Fibromyalgia; Z79.82 Long term (current) use of aspirin; Z79.4 Long term (current) use of insulin; Z99.81 Dependence on supplemental oxygen; Z98.84 Bariatric surgery status; Z95.1 Presence of aortocoronary bypass graft; Z95.0 Presence of cardiac pacemaker; Z96.651 Presence of right artificial knee joint; Z87.891 Personal history of nicotine dependence; Z90.710 Acquired absence of both cervix and uterus; Z88.8 Allergy status to other drugs, medicaments and biological substances
CPT/HCPCS: C9113; J1170; J1650; J2270; J2405; J2704; J3010; J7030; Q9967

== ENCOUNTER 2019-12-02 19:52 | Inpatient (IN) | payer MEDICARE, OTHER ==
[~2019-12-02] VITALS: Ht 157.5 cm; Wt 94.2 kg
[~2019-12-02 19:52] MED LIST changes: +BIOTIN2500 MCG PO; +CARAFATE 1GM1 G PO; +CARAFATE S1 GM/10 ML PO; +DEMADEX 20MG20 M1 PO; +DICLOFENAC SOD2.5 ML TOP; +ELIDEL1% TOP; +FIBERCON; +LIDODERM 5% PATC1 EA TP; +TIAZAC120 MG PO
[2019-12-02 20:55] LABS: HEMATOCRIT 48.8 % (37.0-47.0); HEMOGLOBIN 15.6 g/dl (12.5-16.0); MEAN CELL VOLUME 92 fl (80.0-100.0); MEAN CORPUSCULAR HEMOGLOBIN 29 pg (27.0-31.0); MEAN CORPUSCULAR HGB CONC 32 g/dl (33.0-37.0); MEAN PLATELET VOLUME 11.2 fl (7.4-10.4); PLATELET COUNT 245 K/mm3 (130-400); RED BLOOD COUNT 5.31 M/mm3 (4.10-5.30)
[2019-12-02 21:09] LABS: ALANINE AMINOTRANSFERASE 53 U/L (9-52); ALBUMIN 4.2 gm/dL (3.5-5.0); ALKALINE PHOSPHATASE 59 U/L (50-136); ANION GAP 15 mmol/L (7-16); AST,SGOT 66 U/L (15-37); BILIRUBIN,TOTAL 0.4 mg/dL (0.0-1.0); BLOOD UREA NITROGEN 66 mg/dL (7-17); CARBON DIOXIDE 15 mmol/L (22-30); CHLORIDE 105 mmol/L (98-107); CREATININE, serum 1.92 (0.52-1.25); GLUCOSE 261 mg/dL (74-106); LIPASE 45 U/L (23-300); POTASSIUM 5.1 mmol/L (3.4-5.0); SODIUM 135 mmol/L (137-145); TOTAL PROTEIN 7.4 gm/dL (6.4-8.2)
[2019-12-02 21:10] LABS: ACETONE,SERUM NEGATIVE
[2019-12-02 21:33] LABS: C-REACTIVE PROTEIN 23.7 mg/dL (0.0-0.9)
[2019-12-02 21:47] LABS: BAND 22 % (0-10); LYMPHOCYTE 11 % (20.0-51.0); METAMYELOCYTE 1 % (0-0); NEUTROPHILS 62 % (42.0-75.2)
[2019-12-02 21:48] LABS: HYPOCHROMIA 1+; PLATELET ESTIMATE NORMAL (NORMAL)
[2019-12-02 23:36] VITALS: BP 141/46; PULSE 60; TEMP 99
[2019-12-03] MEDS ORDERED: ALDACTONE 25MG25 M1 PO (00:20)
[2019-12-03] MEDS ORDERED: NYSTATIN CREAM15 GM TP (00:21)
--- NOTE | 2019-12-03 01:06 | NUR ---
PATIENT WILL HAVE HER PAP DEVICE BROUGHT IN FROM HOME.
[2019-12-03 04:45] VITALS: BP 150/50; PULSE 60; TEMP 99.1
[2019-12-03 06:31] LABS: HEMATOCRIT 41.8 % (37.0-47.0); MEAN CELL VOLUME 93 fl (80.0-100.0); MEAN CORPUSCULAR HEMOGLOBIN 29 pg (27.0-31.0); MEAN CORPUSCULAR HGB CONC 32 g/dl (33.0-37.0); MEAN PLATELET VOLUME 11.5 fl (7.4-10.4); PLATELET COUNT 168 K/mm3 (130-400); RED BLOOD COUNT 4.49 M/mm3 (4.10-5.30); REDCELL DISTRIBUTION WIDTH-CV 14.3 % (11.5-14.5)
[2019-12-03 06:38] LABS: HEMOGLOBIN 13.2 g/dl (12.5-16.0)
[2019-12-03 06:46] LABS: CALCIUM 7.9 mg/dL (8.4-10.2); CREATININE, serum 1.35 (0.52-1.25); POTASSIUM 4.2 mmol/L (3.4-5.0)
[2019-12-03 07:30] VITALS: BP 143/73; PULSE 61; TEMP 98
--- NOTE | 2019-12-03 08:00 | NUR ---
Patient in bed resting. Alert and oriented x 3. Assessment complete. Assisted patient to restroom. Steady gait with stand by assist. Fluids infusing per orders to right AC. Denies pain at this time. Denies further needs at this time.
[2019-12-03 08:06] LABS: BAND 29 % (0-10); LYMPHOCYTE 10 % (20.0-51.0); METAMYELOCYTE 5 % (0-0); NEUTROPHILS 48 % (42.0-75.2)
[2019-12-03 08:08] LABS: BURR CELLS 2+
[2019-12-03 08:09] LABS: PLATELET ESTIMATE NORMAL (NORMAL)
[2019-12-03 08:10] LABS: POLYCHROMASIA 2+
[2019-12-03 08:25] LABS: PATHOLOGY DIFF REVIEW OK
[2019-12-03 11:08] VITALS: BP 151/63; PULSE 61; TEMP 97.6
[2019-12-03 16:08] VITALS: BP 131/39; PULSE 60; TEMP 97.6
[2019-12-03 16:31] LABS: HEMATOCRIT 36.8 % (37.0-47.0)
--- NOTE | 2019-12-03 16:51 | NUR ---
Regulatory Consultant met with patient to discuss discharge planning. Patient lives alone in [place] and sees Dr. Moreno for primary care. Patient obtains medications from either [facility] in [place] or [facility]. Patient denies difficulties obtaining her medications. Patient uses a CPAP and no other DME. Patient reports independence with ADLS. Patient states her daughter, Luisa (ph#[phone]) is her DPOA-HC and lives in [place], [place]. Patient plans to return home upon discharge with her friend's daughter providing transportation. SW to continue to follow as needed.
--- NOTE | 2019-12-03 18:23 | NUR ---
Patient has done well throughout the day. Continues to have loose stools throughout the day. Educated patient on new medications. Fluids continue to infuse per orders. Denies further needs at this time. Will report off to night shift manager.
--- NOTE | 2019-12-03 20:10 | NUR ---
ASSESSMENT COMPLETE. RESTING IN BED. STATES MARIAM SHE "FEELS BETTER TODAY." DENIES N/V, DENIES DIARRHEA. DENIES NEEDS AT THIS TIME.
[2019-12-03 20:54] VITALS: BP 155/49; PULSE 61; TEMP 98.9
[2019-12-03 23:02] VITALS: BP 149/78; PULSE 63; TEMP 98.6
[2019-12-04 03:52] VITALS: BP 111/51; PULSE 59; TEMP 97.9
[2019-12-04 07:13] LABS: HEMATOCRIT 37.5 % (37.0-47.0); HEMOGLOBIN 11.8 g/dl (12.5-16.0); MEAN CELL VOLUME 94 fl (80.0-100.0); MEAN CORPUSCULAR HEMOGLOBIN 30 pg (27.0-31.0); MEAN CORPUSCULAR HGB CONC 32 g/dl (33.0-37.0); MEAN PLATELET VOLUME 11.5 fl (7.4-10.4); PLATELET COUNT 132 K/mm3 (130-400); REDCELL DISTRIBUTION WIDTH-CV 14.4 % (11.5-14.5)
[2019-12-04 07:23] LABS: CALCIUM 8.4 mg/dL (8.4-10.2); CREATININE, serum 0.95 (0.52-1.25); POTASSIUM 3.9 mmol/L (3.4-5.0)
[2019-12-04 08:42] LABS: BAND 39 % (0-10); EOSINOPHIL 2 % (0-4); LYMPHOCYTE 19 % (20.0-51.0); MYELOCYTE 1 % (0-0); NEUTROPHILS 30 % (42.0-75.2); PLATELET ESTIMATE DECREASED (NORMAL)
[2019-12-04 09:05] VITALS: BP 125/36; PULSE 59; TEMP 98.2
--- NOTE | 2019-12-04 11:00 | NUR ---
Initial visit; Patient thanked Waterproofing Mixer for looking in on her and keeping her in Waterproofing Mixer's prayers.
[2019-12-04 12:44] VITALS: BP 122/33; PULSE 60; TEMP 98.5
--- NOTE | 2019-12-04 15:07 | NUR ---
PT RETURNED FROM CT.
--- NOTE | 2019-12-04 15:12 | NUR ---
REPORT GIVEN TO RONNIE VIEIRA.
[2019-12-04 16:42] VITALS: BP 136/37; PULSE 59; TEMP 98.9
--- NOTE | 2019-12-04 18:40 | NUR ---
Pt resting in the room, IV site in right AC was leaking after returning from CT, IV removed, cahteter tip intact, new site started in Pt's left forearm, flushes well, ABX restarted.
[2019-12-04 20:12] VITALS: BP 143/41; PULSE 58; TEMP 98.9
--- NOTE | 2019-12-04 22:45 | NUR ---
Shift assessment complete. Patient in bed, awake. Denies pain/nausea. IV in left wrist flushed with NS, blood return noted, patent. Denies further needs at this time. Will continue to monitor.
[2019-12-04 23:02] LABS: COLLECTION METHOD CLEAN CATCH
[2019-12-04 23:19] LABS: MUCOUS Present /lpf; PH 5 (5-8); SQUAMOUS EPITHELIAL 0-2 /hpf; URINE APPEARANCE Clear; URINE BACTERIA Rare /hpf; URINE BILIRUBIN Negative (NEGATIVE); URINE BLOOD 1+ (NEGATIVE); URINE COLOR Colorless; URINE GLUCOSE Negative (NEGATIVE); URINE KETONE Negative (NEGATIVE); URINE LEUKOCYTE ESTERASE Negative (NEGATIVE); URINE NITRATE Negative (NEGATIVE); URINE PROTEIN(semi-quant) Negative (NEGATIVE); URINE RBC 0-2 /hpf; URINE UROBILINOGEN Negative (NEGATIVE)
[2019-12-04 23:59] VITALS: BP 155/58; PULSE 61; TEMP 98.1
[2019-12-05 03:27] VITALS: BP 144/53; PULSE 60; TEMP 98.3
--- NOTE | 2019-12-05 05:30 | NUR ---
Patient in bed, awake. States abdominal pain is 10/10, and is also nauseous. Prn pain medication and antiemetic given per request. Last BG 230, but given she is nauseous, will hold sliding scale insulin and recheck BG at 6:30. Denies further needs at this time. Will continue to monitor.
--- NOTE | 2019-12-05 07:00 | NUR ---
Bedside shift report received from RONNIE More. PT in bed resting with eyes closed, upon netry c/o pain to / to abd, states "not cramping, just hurts". Will provide PRN meds and continue to monitor.
--- NOTE | 2019-12-05 07:06 | NUR ---
Patient in bed, awake. States pain is still 10/10 in abdomen, cramping, c/o diarrhea. Will notify Dr. Tucker, pt requesting pain meds/antiemetic. Report given to RONNIE Stewart.
[2019-12-05 07:33] LABS: HEMOGLOBIN 11.7 g/dl (12.5-16.0); MEAN CELL VOLUME 92 fl (80.0-100.0); MEAN CORPUSCULAR HEMOGLOBIN 30 pg (27.0-31.0); MEAN CORPUSCULAR HGB CONC 33 g/dl (33.0-37.0); MEAN PLATELET VOLUME 11.9 fl (7.4-10.4); PLATELET COUNT 141 K/mm3 (130-400); RED BLOOD COUNT 3.92 M/mm3 (4.10-5.30); REDCELL DISTRIBUTION WIDTH-CV 13.8 % (11.5-14.5)
[2019-12-05 07:55] LABS: CALCIUM 8.7 mg/dL (8.4-10.2); CREATININE, serum 0.85 (0.52-1.25); POTASSIUM 3.9 mmol/L (3.4-5.0)
[2019-12-05 08:03] VITALS: BP 175/61; PULSE 61; TEMP 97.4
--- NOTE | 2019-12-05 08:05 | NUR ---
Assessment charted. PRN pain meds given for pain of 10/10 to abd, protonix given first and waited 10 minutes to help with nausea. educated on need to have some po intake with pain meds but pt refusing to eat anything at this time. Resting in bed with cpap off. IV antibiotics to LW. Will continue to monitor.
[2019-12-05 08:09] LABS: BAND 17 % (0-10); LYMPHOCYTE 5 % (20.0-51.0); NEUTROPHILS 75 % (42.0-75.2)
[2019-12-05 08:10] LABS: PLATELET ESTIMATE NORMAL (NORMAL)
[2019-12-05 12:45] VITALS: BP 169/59; PULSE 59; TEMP 97.6
--- NOTE | 2019-12-05 17:08 | NUR ---
Cigarette Book Maker spoke with PT, Nilsa who advised patient did well today and could return home with outpatient PT. SW will continue to follow.
[2019-12-05 17:32] VITALS: BP 159/57; PULSE 60; TEMP 97.9
--- NOTE | 2019-12-05 17:53 | NUR ---
Pt has become increasingly better throughout the day. More awake and alert now compared to this morning, continues to have some pain and nausea but refusing to take any medications for it at this time. Resting in bed after amublating hallways with PT today. Christelle needs, will give bedside shift report to nightshift nurse who will resume care.
[2019-12-05 20:00] VITALS: BP 155/57; PULSE 61; TEMP 97.6
--- NOTE | 2019-12-05 20:00 | NUR ---
Shift assessment complete. Patient in bed, awake. States abdomen pain 12/10. Prn pain medication given per pt request. IV in left wrist flushed with NS, patent. Infusing abx. Denies further needs at this time. Will continue to monitor.
--- NOTE | 2019-12-06 01:29 | NUR ---
Patient in bed, awake. States pain 6/10 in abdomen. Prn pain medication given per request. Declines crackers with pain meds. Declines further needs at this time. Will continue to monitor.
[2019-12-06 05:01] VITALS: BP 146/42; PULSE 61; TEMP 97.9
--- NOTE | 2019-12-06 05:12 | NUR ---
Patient in bed, ambulated to . States pain 6/10 in abdomen. Prn pain medication given. IV flushed with NS, patent. Infusing IV abx. SCD's placed per pt request. Denies further needs at this time. Will continue to monitor.
--- NOTE | 2019-12-06 06:09 | NUR ---
Patient in bed, incontinent of urine. Bed pad changed, amina-care given. Repositioned in bed with assist x3. Denies further needs at this time. Per lab, WBC 26.0. Will notify hospitalist on-call.
[2019-12-06 06:56] LABS: HEMOGLOBIN 12.8 g/dl (12.5-16.0); MEAN CELL VOLUME 90 fl (80.0-100.0); MEAN CORPUSCULAR HEMOGLOBIN 30 pg (27.0-31.0); MEAN CORPUSCULAR HGB CONC 33 g/dl (33.0-37.0); MEAN PLATELET VOLUME 11.4 fl (7.4-10.4); PLATELET COUNT 158 K/mm3 (130-400); RED BLOOD COUNT 4.34 M/mm3 (4.10-5.30); REDCELL DISTRIBUTION WIDTH-CV 13.4 % (11.5-14.5)
[2019-12-06 07:12] LABS: CALCIUM 8.8 mg/dL (8.4-10.2); CREATININE, serum 0.94 (0.52-1.25); POTASSIUM 3.9 mmol/L (3.4-5.0)
[2019-12-06 07:51] VITALS: BP 161/54; PULSE 60; TEMP 98
[2019-12-06 09:01] LABS: BAND 3 % (0-10); BURR CELLS 1+; LYMPHOCYTE 13 % (20.0-51.0); METAMYELOCYTE 2 % (0-0); NEUTROPHILS 78 % (42.0-75.2); PLATELET ESTIMATE NORMAL (NORMAL)
--- NOTE | 2019-12-06 11:39 | NUR ---
Outreach Coordinator notified that patient to discharge home today. HALLIE met with patient who reports she is not sure if she will have a ride home, but her daughter Luisa may be able to get her later. HALLIE contacted patient's daughter Luisa who advised she will be there to picking supervisor patient between [id number]. HALLIE also discussed recommendation for outpatient PT with Luisa who is in agreeance that patient needs to continue with outpatient PT. Luisa states she believes patient has outpatient PT already established with [facility]. HALLIE met with patient again to advise Luisa will pick her up this afternoon. SW also discussed outpatient PT with patient. Patient reports she is agreeable to continue with [facility]. HALLIE then presented and explained IM form to patient who verbalized understanding then provided signature. HALLIE placed form on chart then provided copy to patient. HALLIE collaborated with Dm Bravo who will schedule outpatient PT appointment along with other follow up appointments. HALLIE provided update to Hospitalist on transportation. No additional needs identified at this time.
--- NOTE | 2019-12-06 11:58 | NUR ---
Pt assessment completed and charted. pt laying in bed, A&O. Pt denies any abdominal pain at this time, able to tolerate breakfast but didn't have "much of an appetite". Pt has LFA INT IV that flushes w/o complications. Pt on room air, breathing is even and unlabored. Heart RRR, paced. BS at 195 this morning, administered SSI per MAR. All other medications administered per MAR. Pt voices no other concerns at this time. Call light within reach.
[2019-12-06 12:20] VITALS: BP 149/62; PULSE 61; TEMP 98.1
[2019-12-06] MEDS ORDERED: PREDNISONE20 MG PO (13:55)
[2019-12-06] MEDS ORDERED: AMOXICILLIN 8751 TAB PO (14:03)
[2019-12-06] MEDS ORDERED: DOXYCYCLINE 10100 MG PO (14:07)
[2019-12-06] MEDS ORDERED: BENTYL 10MG10 MG/CAP PO (14:09)
[2019-12-06] MEDS ORDERED: NORCO 325 MG-51 TAB PO ×2 (14:24→14:26)
--- NOTE | 2019-12-06 15:19 | NUR ---
pt discharge instructions discussed and reviewed with patient and family member. All questions answered, no further concerns expressed. LFA INT IV dc'd w/ catheter tip intact and no complications. Pt escorted out via WC by GONZÁLEZ Fox, assisted into car safely.
== END 2019-12-06 15:21 | disposition home or self-care (01) | DRG 391 ==
LOC: COL.ER 19:52 → MEDICAL 22:16
PROVIDERS: Emergency Medicine; Physician Assistant; ADMIT Hospitalist
DX: K52.9 Noninfective gastroenteritis and colitis, unspecified (principal); J18.9 Pneumonia, unspecified organism; J96.91 Respiratory failure, unspecified with hypoxia; E87.2 Acidosis; R65.10 Systemic inflammatory response syndrome (SIRS) of non-infectious origin without acute organ dysfunction; J44.0 Chronic obstructive pulmonary disease with (acute) lower respiratory infection; N17.9 Acute kidney failure, unspecified; K92.1 Melena; I27.20 Pulmonary hypertension, unspecified; E03.9 Hypothyroidism, unspecified; E78.5 Hyperlipidemia, unspecified; G25.81 Restless legs syndrome; G43.909 Migraine, unspecified, not intractable, without status migrainosus; I48.91 Unspecified atrial fibrillation; I25.10 Atherosclerotic heart disease of native coronary artery without angina pectoris; E87.70 Fluid overload, unspecified; Z96.651 Presence of right artificial knee joint; G47.33 Obstructive sleep apnea (adult) (pediatric); Z87.11 Personal history of peptic ulcer disease; Z90.49 Acquired absence of other specified parts of digestive tract; Z90.710 Acquired absence of both cervix and uterus; Z95.0 Presence of cardiac pacemaker; Z90.5 Acquired absence of kidney; Z98.84 Bariatric surgery status; Z79.84 Long term (current) use of oral hypoglycemic drugs; Z87.891 Personal history of nicotine dependence
CPT/HCPCS: 99222-AI; 99232-AI; 99233-AI; 99239; C9113; J1650; J1815; J1940; J2405; J2543; J3010; J7030; J7512; Q9967

== ENCOUNTER 2020-04-15 07:35 | Day surgery (SDC) | payer MEDICARE, OTHER ==
[2005-03-02 17:46] VITALS: BP 115/57
[~2020-04-15] VITALS: Ht 157.5 cm; Wt 95.0 kg
[~2020-04-15 07:35] MED LIST changes: +ALDACTONE 25MG25 M1 PO; +AMOXICILLIN 8751 TAB PO; +BENTYL 10MG10 MG/CAP PO; +DOXYCYCLINE 10100 MG PO; +NYAMYC100000 U/G TP; +PREDNISONE20 MG PO; +REQUIP5 MG PO
[2020-04-15] MEDS ORDERED: CARAFATE 1GM1 G PO (08:01)
[2020-04-15 08:36] VITALS: BP 104/55; PULSE 60; TEMP 98.9
[2020-04-15 09:40] VITALS: BP 118/59; PULSE 63; TEMP 98.9
--- NOTE | 2020-04-15 09:40 | NUR ---
Pt returned via cart to [facility] 4. A&O. VSS-see flowsheet. Denies complaints. SBA to recliner in [place]. Given toast and sugar free sprite per request. Call light in reach.
[2020-04-15 09:55] VITALS: BP 129/55; PULSE 61
[2020-04-15 10:10] VITALS: BP 136/57; PULSE 60
[2020-04-15 10:25] VITALS: BP 133/58; PULSE 60
--- NOTE | 2020-04-15 10:40 | NUR ---
VS remain stable. Pt tolerated oral intake. IV removed, pressure dressing applied. Pt dressed into personal clothes. Discharge teaching completed, pt verbalized understanding. Dr Mortensen visited with pt after procedure. Taken via wheelchair to private vehicle for daughter to drive pt home.
== END 2020-04-15 10:45 | disposition home or self-care (01) ==
LOC: SDCO 07:35
DX: K28.7 Chronic gastrojejunal ulcer without hemorrhage or perforation (principal); K31.89 Other diseases of stomach and duodenum; K21.9 Gastro-esophageal reflux disease without esophagitis; I25.10 Atherosclerotic heart disease of native coronary artery without angina pectoris; I10 Essential (primary) hypertension; E78.5 Hyperlipidemia, unspecified; Z95.1 Presence of aortocoronary bypass graft; J44.9 Chronic obstructive pulmonary disease, unspecified; G47.33 Obstructive sleep apnea (adult) (pediatric); Z86.73 Personal history of transient ischemic attack (TIA), and cerebral infarction without residual deficits; G43.909 Migraine, unspecified, not intractable, without status migrainosus; F41.9 Anxiety disorder, unspecified; F32.9 Major depressive disorder, single episode, unspecified; D64.9 Anemia, unspecified; Z86.010 Personal history of colon polyps; Z79.82 Long term (current) use of aspirin; Z79.4 Long term (current) use of insulin; Z79.84 Long term (current) use of oral hypoglycemic drugs; Z79.51 Long term (current) use of inhaled steroids; Z88.1 Allergy status to other antibiotic agents; Z88.8 Allergy status to other drugs, medicaments and biological substances; Z88.6 Allergy status to analgesic agent; Z91.048 Other nonmedicinal substance allergy status; Z90.49 Acquired absence of other specified parts of digestive tract; Z90.5 Acquired absence of kidney
CPT/HCPCS: J2704; J7030

== ENCOUNTER → 2020-05-19 | Outpatient (CLI) | payer MEDICARE, OTHER ==
[~2020-05-19] VITALS: Ht 157.5 cm; Wt 96.4 kg
[2020-05-19 14:31] VITALS: BP 112/60; PULSE 60
== END ==
LOC: LIGHT 13:54
DX: E66.01 Morbid (severe) obesity due to excess calories (principal); Z68.38 Body mass index [BMI] 38.0-38.9, adult; Z98.84 Bariatric surgery status
CPT/HCPCS: G0463

== ENCOUNTER → 2021-10-14 | Outpatient (CLI) | payer MEDICARE, OTHER | LOC: COL.RAD 12:35 | DX: M43.16 Spondylolisthesis, lumbar region (principal); M48.061 Spinal stenosis, lumbar region without neurogenic claudication; Z98.1 Arthrodesis status | CPT/HCPCS: A9585 ==

== ENCOUNTER 2023-01-18 08:47 | Day surgery (SDC) | payer MEDICARE, OTHER ==
[2005-03-02 17:46] VITALS: BP 115/57
[~2023-01-18] VITALS: Ht 157.5 cm; Wt 78.5 kg
[2023-01-18 10:30] VITALS: BP 103/47; PULSE 61; TEMP 97.5
--- NOTE | 2023-01-18 10:30 | NUR ---
1030 PATIENT RETURNS TO ROOM 5 VIA CART. PATIENT IS DROWSY BUT ALERTS TO VERBAL STIMULI. PATIENT AMBULATES TO RECLINER WITH THE ASSISTANCE OF 2 NURSES. RESPIRATIONS EVEN AND UNLABORED. VITAL SIGNS OBTAINED. DAUGHTER IS IN ROOM. PATIENT REQUESTED A DIET SPRITE AND A MUFFIN, NO DIFFICULTIES SWALLOWING. 1050 DOCTOR IN ROOM TO SPEAK WITH PATIENT. 1055 THIS NURSE REVIEWED DISCHARGE INSTRUCTIONS WITH PATIENT. PATIENT VERBALIZED UNDERSTANDING. 1100 DISCONTINUED IV FROM RIGHT WRIST WITH NO DIFFICULTIES. 1110 PATIENT DISCHARGES FROM UNIT VIA WHEELCHAIR IN STABLE CONDITION.
[2023-01-18 10:45] VITALS: BP 103/45; PULSE 60
[2023-01-18 11:00] VITALS: BP 105/58; PULSE 62
[2023-01-18 11:01] VITALS: BP 104/53; PULSE 62; TEMP 97.1
== END 2023-01-18 11:10 | disposition home or self-care (01) ==
LOC: SDCO 08:47
DX: K52.9 Noninfective gastroenteritis and colitis, unspecified (principal); K63.89 Other specified diseases of intestine; G47.33 Obstructive sleep apnea (adult) (pediatric); K21.9 Gastro-esophageal reflux disease without esophagitis; E11.9 Type 2 diabetes mellitus without complications; R10.13 Epigastric pain; I07.1 Rheumatic tricuspid insufficiency; Z95.0 Presence of cardiac pacemaker; Z98.84 Bariatric surgery status; Z79.899 Other long term (current) drug therapy; Z95.5 Presence of coronary angioplasty implant and graft; Z79.84 Long term (current) use of oral hypoglycemic drugs; Z87.11 Personal history of peptic ulcer disease
CPT/HCPCS: J2704; J7120

== ENCOUNTER 2024-01-25 10:24 | Inpatient (IN) | payer MEDICARE, OTHER ==
[2005-03-02 17:46] VITALS: BP 115/57
[~2024-01-25] VITALS: Ht 157.5 cm; Wt 76.2 kg
[2024-01-25] VITALS (12 sets, daily range): BP systolic 116–142; BP diastolic 41–67; PULSE 59–87; TEMP 98–98.1
[~2024-01-25 10:24] MED LIST changes: +ASPIRIN 81M81 MG/TA2 PO; +BETAPACE 120MG120 MG PO; +CLEOCIN HC150 MG/CAP PO; +COZAAR 50MG50 MG/TAB PO; +CRESTOR 10MG10 MG PO; +LR 1,000 ML IV SCH; +TRULICITY3 MG/0.5 M SQ; +ZOLOFT 50MG50 MG PO
[2024-01-25] MEDS ORDERED: Lidocaine PF 2% (20 MG/ML) 5 ML VIAL ONE (12:05)
[2024-01-25] MEDS ORDERED: Ondansetron 4 MG/2 ML VIAL ONE (12:05)
[2024-01-25] MEDS ORDERED: fentaNYL 50 MCG/ML 5 ML VIAL ONE (12:06)
[2024-01-25] MEDS ORDERED: Rocuronium 50 MG/5 ML Multi-Dose VIAL ONE (12:06)
[2024-01-25] MEDS ORDERED: fentaNYL 50 MCG/ML 1 ML SYRINGE/VIAL [PACU/SDC ONLY] IV PRN (12:30)
[2024-01-25] MEDS ORDERED: HYDROmorphone 1 MG/1 ML SYRINGE [PACU/SDC ONLY] IV PRN (12:30)
[2024-01-25] MEDS ORDERED: hydrALAZINE 20 MG/ML 1 ML VIAL IV PRN (12:30)
[2024-01-25] MEDS ORDERED: Ondansetron 4 MG/2 ML VIAL IV PRN ×2 (12:30→14:30)
[2024-01-25] MEDS ORDERED: Topical Skin Adhesive 1 EACH (1 ML) TOP ONE (13:02)
[2024-01-25] MEDS ORDERED: ePHEDrine 50 MG/ML VIAL ONE (13:10)
[2024-01-25] MEDS ORDERED: Naloxone 0.4 MG/ML VIAL IV PRN (14:30)
[2024-01-25] MEDS ORDERED: HYDROmorphone 0.5 MG/0.5 ML SYRINGE IV PRN (14:30)
[2024-01-25] MEDS ORDERED: traMADol 50 MG TAB PO PRN (14:30)
[2024-01-25] MEDS ORDERED: Acetaminophen 500 MG TAB PO SCH (15:27)
--- NOTE | 2024-01-25 19:26 | NUR ---
report received from wilver murphy. pt resting in bed watching tv. post op vitals continue wnl. fall precautions in place. call light in reach. all needs met at this time.
[2024-01-25] MEDS ORDERED: Sertraline 50 MG TAB PO SCH (21:00)
[2024-01-25] MEDS ORDERED: rOPINIRole 1 MG TAB PO SCH (21:00)
[2024-01-25] MEDS ORDERED: Pregabalin 50 MG CAP PO SCH (21:00)
[2024-01-25] MEDS ORDERED: Isosorbide Dinitrate 10 MG TAB PO SCH (21:00)
[2024-01-25] MEDS ORDERED: Sucralfate 1 G TAB PO SCH (21:00)
[2024-01-25] MEDS ORDERED: Losartan 50 MG TAB PO SCH (21:00)
--- NOTE | 2024-01-25 22:37 | NUR ---
shift assessment complete, see documentation. pt tolerated hs meds well. pt denies pain. fall precautions in place. call light in reach. all needs met at this time.
[2024-01-26] VITALS (413 sets, daily range): BP systolic 6–141; BP diastolic 32–88; PULSE 37–94; TEMP 92.1–97.9; O2SAT 66–100
[2024-01-26] MEDS ORDERED: NS 500 ML IV ONE (05:45)
--- NOTE | 2024-01-26 05:46 | NUR ---
pt bp is 80/50. called environmental program manager dr joseph. new order for 500ml ns bolus.
--- NOTE | 2024-01-26 06:35 | NUR ---
pt bp is now 122/77. pt c/o 04/11 abd pain. prn tramadol administered per orders.
[2024-01-26] MEDS ORDERED: Omeprazole 40 MG **** subs to Pantoprazole 40 MG PO SCH (07:00)
[2024-01-26 07:46] LABS: MEAN CELL VOLUME 92 fl (80.0-100.0); MEAN CORPUSCULAR HEMOGLOBIN 30 pg (27-31); MEAN CORPUSCULAR HGB CONC 32 g/dl (33.0-37.0); MEAN PLATELET VOLUME 11.5 fl (7.4-10.4); PLATELET COUNT 300 K/mm3 (130-400); RED BLOOD COUNT 6.02 M/mm3 (4.10-5.30); REDCELL DISTRIBUTION WIDTH-CV 13.2 % (11.5-14.5)
[2024-01-26 07:47] LABS: HEMATOCRIT 55.5 % (37.0-47.0)
--- NOTE | 2024-01-26 08:20 | NUR ---
Pt. in bed, A&OX3, assessment complete. INT to rt. wirst patent. Pt. is having low BP's, see vitals, and also cool to the touch and clammy. Pt. reports feeling very hot. Dr. Brenner notified of Pt.'s condition. Hospitalist consulted, Dr. Tello notified. New orders received. Blood glucose checked- 162. Pt. reports pain at a 10 to abd. Will give meds. Holding on narcotics per low bp. New order for Toradol, see mar. Pt. denies further needs, will continue to monitor.
[2024-01-26] MEDS ORDERED: Ketorolac 15 MG/ML VIAL IV ONE (08:30)
[2024-01-26] MEDS ORDERED: NS 1,000 ML IV ONE ×2 (08:30→08:45)
--- NOTE | 2024-01-26 08:30 | NUR ---
Abd. palpated. Abd. is firmer on the rt. side than the left. Pt. reports that the pain is all over the abd.
[2024-01-26 08:32] LABS: BAND 66 % (0-10); LYMPHOCYTE 9 % (20.0-51.0); METAMYELOCYTE 1 % (0-0); NEUTROPHILS 19 % (42.0-75.2); PLATELET ESTIMATE NORMAL (NORMAL)
[2024-01-26] MEDS ORDERED: Spironolactone 25 MG TAB PO SCH (09:00)
[2024-01-26] MEDS ORDERED: dilTIAZem CD (24-HR) 120 MG CAP PO SCH (09:00)
--- NOTE | 2024-01-26 09:40 | NUR ---
Pt.'s vitals remain low. Pt. put in trandelenburg and able to get bp up to 108/50. Pt. reports that the toradol did improve her pain. ALBINA Verma requests Q15min vitals. Audie feliz.
--- NOTE | 2024-01-26 10:07 | NUR ---
BP attempted flat at this time and dropped, pt. placed back in trandelenburg.
--- NOTE | 2024-01-26 10:30 | NUR ---
Pt. still having low bp's when not in trandelenburg. At this time pt. reports feeling like her tongue is swollen and this nurse notes that rt. arm in more pale than the rest of her body. Bowel sounds still active. Noted firmness of abd. on the rt. side. CAT call started. Marjorie Madera, House sup., and Karen, RELEASE OF INFORMATION SPECIALIST to the room. Pharmacist also available. IV site remains intact. Plan to take pt. to CT then to ICU.
--- NOTE | 2024-01-26 10:43 | NUR ---
Pt. given epi. IM per orders. to lt. thigh. CT complete, and pt. taken to ICU5.
[2024-01-26] MEDS ORDERED: LR 1,000 ML IV SCH (10:45)
--- NOTE | 2024-01-26 10:48 | NUR ---
1048- PT ARRIVES TO ICU [address] AT THIS TIME. UPON ARRIVAL PT DIAPHORETIC AND HYPOTENSIVE. RIGHT ARM PALE AND UNABLE TO DOPPLER PULSES; DR. Ciera CARREON AT THE BEDSIDE AND AWARE. DOPAMINE INITIATED FOR BLOOD PRESSURE SUPPORT. DR. OLVERA AT THE BEDSIDE AND MAKING ADJUSTMENTS TO PACEMAKER. DR. Lee CARREON ALSO AT THE BEDSIDE AND PLACING ORDERS. CT REPORT SHOWS CONCERNS FOR ABDOMINAL BLEED. 2 UNITS OF UNCROSSMATCHED BLOOD ORDERED BY DR. Lee CARREON. RONNIE BUCK WITH AIVS ATTEMPING TO PLACE PICC LINE. 1130- BLOOD TRANSFUSION OF O NEGATIVE BLOOD INITIATED; ORDERED BY DR. Lee CARREON TO BOLUS BLOOD DUE TO HYPOTENSION. SECOND UNIT OF O NEGATIVE BLOOD INITIATED PRIOR TO PT LEAVING UNIT FOR SURGERY. 1145- RONNIE BUCK UNABLE TO PLACE PICC LINE; DR. CANNON NOW AT THE BEDSIDE AND PLACING CENTRAL LINE TO [facility]. THIS NURSE AT THE BEDSIDE AND ASSISTING. 1215- PT LEFT UNIT FOR SURGERY AT THIS TIME. PT GOING TO OR FOR EXPLORATORY LAPAROTOMY. PT'S DAUGHTER ESPERANZA HAS BEEN CONTINUOSLY UPDATED BY THIS RN, DR. CANNON, DR. Lee CARREON, AND DR. Ciera CARREON. ESPERANZA AND PT'S TUBE STATION ATTENDANT ALLOWED TO SEE PT FOR A FEW MINUTES PRIOR TO BEING TAKEN BACK FOR SURGERY. PT'S SON ALSO ABLE TO SPEAK WITH HER ON THE PHONE. PT'S FAMILY AWARE THAT PT WILL LIKELY RETURN TO ICU INTUBATED AND MECHANICALL VENTILATED AND VOICE UNDERSTANDING. PT'S FAMILY IS AWARE THAT PT IS CRITICALLY ILL.
[2024-01-26] MEDS ORDERED: Iohexol 300 - 100 ML VIAL IV ONE (10:49)
[2024-01-26] MEDS ORDERED: NS 100 ML IV SCH (10:50)
[2024-01-26] MEDS ORDERED: methylPREDNISolone Sod Succ 125 MG/2 ML VIAL IV SCH (11:00)
[2024-01-26] MEDS ORDERED: EPINEPHrine 0.3 MG/0.3 ML Auto Injector IM SCH (11:00)
--- NOTE | 2024-01-26 11:21 | NUR ---
clay worker was alerted that patient's blood pressure dropped and the medical team met with patient. Patient still alert but moving to ICU. SW met with patient's daughter, Luisa, whom was emotionally distraught. Hema lives in [place] by herself. Luisa reports she is normally very independent and has not had this reaction to surgery before. Luisa reports PCP is Dr. Tee at the [facility]. Luisa reports she believes patient is a DNR and that she is her DPOA-HC. SW reviewed EMR and the DPOA-HC on file has a Roger listed, Luisa reports that was patient's significant other however he has . Luisa P# [phone]. Luisa reports patient has a son, Jim, P# [phone] whom lives in [place]. SW explained if patient does not have a DPOA-HC on file with PCP and anything were to happen where patient would need medical decisions made for her, it would go to both her and iJm. Luisa started crying again and stated she did not know what she was going to do if she did not make it. Luisa explained she wanted to be the one to speak with Jim about her mother's status. SW contacted PCP office and requested if patient has DNR and DPOA-HC. SW was informed patient had expressed to them earlier this morning that patient expressed she had a DNR but had not provided any documentation stating this. PCP has no record of DNR or DPOA on file. HALLIE notified SW Krystle Del Rio whom is covering ICU of this information. SW also notified Dr. Tello. Patient transferred to ICU.
--- NOTE | 2024-01-26 11:40 | NUR ---
Initial visit; Patient thanked Salesperson Corsets for looking in on her and offering prayer and God's blessings. Patient was receptive to Salesperson Corsets for keeping her in her prayers.
[2024-01-26] MEDS ORDERED: Dextrose (Glucose) 15 GM (4 x 3.75 GM) Chewable TABLET PACK PO PRN (12:00)
[2024-01-26] MEDS ORDERED: Insulin Lispro (HumaLOG) SQ SCH (12:00)
[2024-01-26] MEDS ORDERED: Glucagon 1 MG VIAL IM PRN (12:00)
[2024-01-26] MEDS ORDERED: Dextrose 50% Water 25 GM/50 ML SYRINGE IV PRN (12:00)
[2024-01-26] MEDS ORDERED: Etomidate 20 MG/10 ML VIAL IV ONE (12:01)
[2024-01-26] MEDS ORDERED: Rocuronium 50 MG/5 ML Multi-Dose VIAL ONE (12:01)
[2024-01-26] MEDS ORDERED: fentaNYL 50 MCG/ML 5 ML VIAL ONE (12:01)
[2024-01-26] MEDS ORDERED: NS 100 ML IV ONE ×2 (12:02→12:45)
[2024-01-26] MEDS ORDERED: DOPamine/Dextrose 5%-Water 250 ML IV SCH (12:15)
[2024-01-26 12:43] LABS: HEMATOCRIT 57.3 % (37.0-47.0); HEMOGLOBIN 18.5 g/dl (12.5-16.0)
[2024-01-26] MEDS ORDERED: Phenylephrine 10 MG/ML VIAL ONE (12:45)
[2024-01-26 12:57] LABS: ALBUMIN 2.6 g/dL (3.4-4.8); BILIRUBIN,TOTAL 0.7 mg/dL (0.2-1.2); CALCIUM 7.9 mg/dL (8.4-10.2); CREATININE, serum 2.39 mg/dL (0.57-1.11); POTASSIUM 5.2 mEq/L (3.5-4.5); TOTAL PROTEIN 5.3 g/dl (6.2-8.1)
[2024-01-26] MEDS ORDERED: Tranexamic Acid 1,000 MG/10 ML VIAL ONE (12:59)
--- NOTE | 2024-01-26 13:35 | NUR ---
1335- PT RETURNED FROM OR AT THIS TIME. PT IS INTUBATED AND SEDATED. 6.5 ETT 25CM AT LIP. NG TO LEFT NARE AND AT 55CM. DOPAMINE AT 15MCG/KG/MIN. PT CONTINUES TO BE HYPOTENSIVE; LEVOPHED GTT INITIATED. PT'S ABDOMEN LEFT OPEN AFTER SURGERY AND REMAINS THAT WAY UPON ARRIVAL TO ICU. ABDOMEN PACKED WITH 5 SURGICAL TOWEL AND NG TUBE TO ABDOMEN; 25 CM AT BASE OF MIDLINE INCISION AND SUTURED IN PLACE. ABDOMINAL NG TUBE TO LOW CONTINUOUS SUCTION PER ORDERED BY DR. OSBORNE. HOB TO NOT BE ELEVATED TO KEEP PRESSURE OFF ABDOMEN. ARTERIAL LINE PLACED TO LEFT RADIAL ARTERY X1 ATTEMPT BY LEIDY MONTOYA. 1421- RESTRAINTS PLACED ON PT FOR LINE PROTECTION/MEDICAL MANAGEMENT. PROPOFOL AND FENTANYL GTT'S INITIATED. 1430- VECURONIUM GTT INTIATED. DR. OSBORNE WOULD LIKE PT PARALYZED TO DECREASE RISK OF MOVEMENT AND COUGHING WITH OPEN ABDOMEN. TOF 4/4 @ 8 PRIOR TO INITIATED VECURONIUM. 1515- UNABLE TO GET AXILLARY OR ORAL TEMP. RECTAL TEMP PROBE PLACED AND READING 91.6. MARY HUGGER PLACED ON PT. 1605- PT CONTINUES TO BE HYPOTENSIVE; VASOPRESSIN GTT INITIATED. PT'S DAUGHTER ESPERANZA AT THE BEDSIDE AND HAS BEEN UPDATED ON EVENTS AND PLAN OF CARE.
[2024-01-26] MEDS ORDERED: fentaNYL 100 ML IV SCH (13:45)
[2024-01-26] MEDS ORDERED: Naloxone 0.4 MG/ML VIAL IV PRN (13:45)
[2024-01-26] MEDS ORDERED: metroNIDAZOLE 100 ML IV SCH (14:00)
[2024-01-26] MEDS ORDERED: NS IV SCH (14:00)
[2024-01-26] MEDS ORDERED: Albuterol 0.083% Neb Soln 2.5 MG/3 ML UD IH SCH (14:00)
[2024-01-26] MEDS ORDERED: VECURONIUM IV SCH (14:00)
[2024-01-26] MEDS ORDERED: Vasopressin 20 UNITS in NS 100 ML IV PRN (14:00)
[2024-01-26 14:24] LABS: ARTERIAL BLD GAS O2 SATURATION 93.5 % (92-100); ARTERIAL BLD GAS TCO2 CT 13.2; ARTERIAL BLOOD GAS BASE EXCESS -18.6 (-2-2); ARTERIAL BLOOD GAS HCO3 11.8 meq/L (22-26); ARTERIAL BLOOD GAS PCO2 44.3 mmHg (35-45); ARTERIAL BLOOD GAS PO2 85.3 mmHg (80-100)
[2024-01-26 14:26] LABS: ARTERIAL BLOOD GAS pH 7.05 (7.35-7.45)
[2024-01-26] MEDS ORDERED: Vancomycin 1.5 GM,Special Dose/Pharmacy Prepared 1.5 GM in NS 250 ML IV ONE (14:30)
[2024-01-26] MEDS ORDERED: Meropenem 500 MG in Water For Injection,Sterile 10 ML IV SCH (15:00)
--- NOTE | 2024-01-26 15:31 | NUR ---
PREVENTING INCREASED INTRAABDOMINAL PRESSURE DUE TO OPEN SURGICAL SITE; HOB STAYING BELOW 30 DEGREES FOR THIS REASON.
[2024-01-26 15:32] LABS: HEMATOCRIT 55.9 % (37.0-47.0); HEMOGLOBIN 18.1 g/dl (12.5-16.0)
[2024-01-26] MEDS ORDERED: Sodium Bicarbonate 8.4% 50 MEQ/50 ML SYRINGE IV ONE (15:45)
--- NOTE | 2024-01-26 17:00 | NUR ---
DR. 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 THIS NURSE SPOKE WITH DR. OSBORNE AND MADE HIM AWARE OF FINDINGS. DR. OSBORNE STATES HE WILL SPEAK WITH DR. Ciera CARREON AND MAKE HER AWARE.
[2024-01-26 17:44] LABS: ARTERIAL BLD GAS O2 SATURATION 92.6 % (92-100); ARTERIAL BLD GAS TCO2 CT 12.9; ARTERIAL BLOOD GAS HCO3 12.1 meq/L (22-26); ARTERIAL BLOOD GAS PCO2 27.2 mmHg (35-45); ARTERIAL BLOOD GAS PO2 69.6 mmHg (80-100); ARTERIAL BLOOD GAS pH 7.27 (7.35-7.45)
[2024-01-26] MEDS ORDERED: Heparin 5,000 UNITS/ML 1 ML VIAL IV PRN (17:45)
[2024-01-26] MEDS ORDERED: Heparin/D5W 250 ML IV SCH (17:45)
--- NOTE | 2024-01-26 18:01 | NUR ---
ORDERS RECEIVED FOR HIGH DOSE HEPARIN GTT PROTOCAL AT THIS TIME. THIS NURSE CALLED DR. Ciera CARREON TO VERIFY THAT IT IS OKAY TO START HEPARIN GTT WITH PT'S ABDOMEN BEING OPEN. DR. Ciera CARREON STATES THAT SHE SPOKE WITH VASCULAR SURGEON AT [facility] AND THEY RECOMMEND THE HEPARIN GTT AND IT IS OKAY TO INITIATE IT. DR. Ciera CARREON ALSO STATES THAT WE ARE TO MONITOR RIGHT ARM CLOSELY AND TO NOTIFY PHYSICIAN IF ANY SWELLING IS NOTICED.
--- NOTE | 2024-01-26 19:30 | NUR ---
Received report from RONNIE Jones. Patient remains on ventilator, tolerating well. Propofol, fentanyl, vecuronium, vasopressin, dopamine, and levophed continue to infuse, see IV drip titrations. Per report, patient's TOF prior to initiation of vec drip 4/4 - per report, patient's TOF 0/4 following initiation. During bedside assessment, patient's TOF continues to be 0/4. She is unresponsive to verbal or painful stimuli. Patient's fingertips, toes, lips, and tongue noted to be cyanotic. Unable to get consistent reading from pulse oximeter from forehead, ear, or fingers. Agatha notified and soon arrived at bedside.
[2024-01-26 19:55] LABS: ARTERIAL BLD GAS O2 SATURATION 95.3 % (92-100); ARTERIAL BLD GAS TCO2 CT 9.5; ARTERIAL BLOOD GAS BASE EXCESS -18.1 (-2-2); ARTERIAL BLOOD GAS HCO3 8.8 meq/L (22-26); ARTERIAL BLOOD GAS PCO2 25.4 mmHg (35-45); ARTERIAL BLOOD GAS PO2 93.2 mmHg (80-100)
[2024-01-26 19:57] LABS: ARTERIAL BLOOD GAS pH 7.16 (7.35-7.45)
[2024-01-26 20:18] LABS: ALBUMIN 1.9 g/dL (3.4-4.8); CALCIUM 7.1 mg/dL (8.4-10.2); CREATININE, serum 2.52 mg/dL (0.57-1.11); MAGNESIUM 1.6 mg/dL (1.6-2.6); PHOSPHOROUS 7.8 mg/dL (2.3-4.7); POTASSIUM 5.1 mEq/L (3.5-4.5); TOTAL PROTEIN 4.4 g/dl (6.2-8.1)
[2024-01-26 20:29] LABS: TROPONIN-I 0.07 ng/mL (0.00-0.033)
[2024-01-26 20:30] LABS: BILIRUBIN,TOTAL 0.6 mg/dL (0.2-1.2)
[2024-01-26] MEDS ORDERED: Sodium Bicarbonate/Water,Steri 1,150 ML IV SCH (20:30)
[2024-01-26 20:31] LABS: PARTIAL THROMBOPLASTIN TIME 40.8 SECONDS (26.0-37.0)
--- NOTE | 2024-01-26 21:44 | NUR ---
PT APPEARS TO BE CYANOTIC. O2 TURNED TO 100%. ABG OBTAINED. NO NEW ORDERS AT THIS TIME.
--- NOTE | 2024-01-26 21:54 | NUR ---
UNABLE TO OBTAIN O2 SATURATION. RN AWARE.
[2024-01-26] MEDS ORDERED: EPINEPHrine 2 MG in D5W 100 ML IV SCH (23:00)
[2024-01-27] VITALS (9 sets, daily range): BP systolic 54; BP diastolic 40; PULSE 84; TEMP 96.8; O2SAT 43–97
[2024-01-27] MEDS ORDERED: Scopolamine 1 MG Delivered 3-Day PATCH TD SCH (00:30)
[2024-01-27] MEDS ORDERED: Morphine 4 MG/ML VIAL IV PRN (00:30)
[2024-01-27] MEDS ORDERED: LORazepam 2 MG/ML 1 ML VIAL IV PRN (00:30)
--- NOTE | 2024-01-27 01:06 | NUR ---
UNABLE TO OBTAIN O2 SATURATION. FAMILY AND RN AT BEDSIDE.
--- NOTE | 2024-01-27 01:09 | NUR ---
0058: Spoke with Michelle at [facility]. Patient okay to be released to home. #[phone]
--- NOTE | 2024-01-27 01:19 | NUR ---
Daughter would like [facility] in [place]
--- NOTE | 2024-01-27 02:15 | NUR ---
At 0015, patient maxed on levophed, dopamine, vaso, and epinephrine drips with systolic pressures 50-60s via arterial line. Family at bedside. Agatha notified. Family ultimately decided to compassionately extubate patient. NG and ET tube removed at 0037. All IV drips stopped. TOD at 0050 confirmed by this RN and hospitalist, Agatha. RIJ triple lumen, 20G RW peripheral IV, carty catheter, and art line removed. Family took all patient's belongings home with them.
--- NOTE | 2024-01-27 02:40 | NUR ---
Patient's body released to home at this time.
[2024-01-27] MEDS ORDERED: Pantoprazole 40 MG in NS 10 ML IV SCH (09:00)
== END 2024-01-27 02:40 | disposition expired | DRG 853 ==
LOC: SDCO 10:24 → SURG 15:20 → ICU 01-26 11:32 → SDCO 01-26 11:33 → ICU 01-26 11:34
PROVIDERS: Internal Medicine; Nurse Practitioner Family; Physician Assistant; ADMIT Surgery
PROC: 8E0W4CZ Robotic Assisted Procedure of Trunk Region, Percutaneous Endoscopic Approach (ICD-10-PCS; 2024-01-25)
PROC: 0WUF4JZ Supplement Abdominal Wall with Synthetic Substitute, Percutaneous Endoscopic Approach (ICD-10-PCS; principal; 2024-01-25 13:45)
PROC: 03HY32Z Insertion of Monitoring Device into Upper Artery, Percutaneous Approach (ICD-10-PCS; 2024-01-26)
PROC: 02H633Z Insertion of Infusion Device into Right Atrium, Percutaneous Approach (ICD-10-PCS; 2024-01-26)
PROC: 30233N1 Transfusion of Nonautologous Red Blood Cells into Peripheral Vein, Percutaneous Approach (ICD-10-PCS; 2024-01-26)
PROC: 4A1BXSH Monitoring of Gastrointestinal Vascular Perfusion using Indocyanine Green Dye, External Approach (ICD-10-PCS; 2024-01-26)
PROC: 0DB80ZZ Excision of Small Intestine, Open Approach (ICD-10-PCS; 2024-01-26 12:00)
DX: A41.9 Sepsis, unspecified organism (principal); I21.4 Non-ST elevation (NSTEMI) myocardial infarction; R65.21 Severe sepsis with septic shock; K63.1 Perforation of intestine (nontraumatic); K66.1 Hemoperitoneum; K43.6 Other and unspecified ventral hernia with obstruction, without gangrene; N17.9 Acute kidney failure, unspecified; E87.20 Acidosis, unspecified; I95.81 Postprocedural hypotension; Z66 Do not resuscitate; Z51.5 Encounter for palliative care; I77.9 Disorder of arteries and arterioles, unspecified; M79.7 Fibromyalgia; I10 Essential (primary) hypertension; I07.1 Rheumatic tricuspid insufficiency; E11.42 Type 2 diabetes mellitus with diabetic polyneuropathy; E03.9 Hypothyroidism, unspecified; I27.20 Pulmonary hypertension, unspecified; G47.33 Obstructive sleep apnea (adult) (pediatric); R57.1 Hypovolemic shock; I25.10 Atherosclerotic heart disease of native coronary artery without angina pectoris; E87.5 Hyperkalemia; K21.9 Gastro-esophageal reflux disease without esophagitis; D64.9 Anemia, unspecified; J45.909 Unspecified asthma, uncomplicated; G43.909 Migraine, unspecified, not intractable, without status migrainosus; G25.81 Restless legs syndrome; F32.A Depression, unspecified; F41.9 Anxiety disorder, unspecified; E78.5 Hyperlipidemia, unspecified; E66.01 Morbid (severe) obesity due to excess calories; Z68.30 Body mass index [BMI] 30.0-30.9, adult; Z79.82 Long term (current) use of aspirin; Z79.890 Hormone replacement therapy; Z99.81 Dependence on supplemental oxygen; Z95.0 Presence of cardiac pacemaker; Z95.1 Presence of aortocoronary bypass graft; Z95.5 Presence of coronary angioplasty implant and graft; Z98.84 Bariatric surgery status; Z90.710 Acquired absence of both cervix and uterus; Z87.891 Personal history of nicotine dependence; Z88.1 Allergy status to other antibiotic agents; Z88.5 Allergy status to narcotic agent; Z88.0 Allergy status to penicillin
CPT/HCPCS: OP; A4314; C1751; C1781; J0171; J0665; J0737; J1170; J1265; J1644; J1885; J2060; J2185; J2270; J2371; J2405; J2598; J2704; J3010; J3370; J7030; J7040; J7050; J7060; J7120; P9016; Q9967